=== PATIENT | male | born 1950 | race Caucasian/White ===

== ENCOUNTER → 2020-03-26 09:28 | Outpatient (BNVA) | payer BC, SELFPAY | PROVIDERS: Family Provider Family Medicine; PCP Family Medicine; Visit Provider Family Medicine | DX: N40.1 Benign prostatic hyperplasia with lower urinary tract symptoms (principal); R39.12 Poor urinary stream; I10 Essential (primary) hypertension; D69.3 Immune thrombocytopenic purpura; R35.1 Nocturia; Z13.220 Encounter for screening for lipoid disorders; Z13.6 Encounter for screening for cardiovascular disorders | CPT/HCPCS: 80048; 80061; 84153; 84154; 85007; 85027 ==

== ENCOUNTER → 2021-04-01 09:16 | Outpatient (BNVA) | payer BC, SELFPAY | PROVIDERS: Family Provider Family Medicine; PCP Family Medicine; Visit Provider Family Medicine | DX: N40.1 Benign prostatic hyperplasia with lower urinary tract symptoms (principal); R39.12 Poor urinary stream; Z12.5 Encounter for screening for malignant neoplasm of prostate; Z13.220 Encounter for screening for lipoid disorders; Z13.6 Encounter for screening for cardiovascular disorders; I10 Essential (primary) hypertension; Z13.1 Encounter for screening for diabetes mellitus | CPT/HCPCS: 80053; 80061; 84153; 85025 ==

== ENCOUNTER → 2021-09-30 08:37 | Outpatient (BNVA) | payer BC, SELFPAY | PROVIDERS: Family Provider Family Medicine; PCP Family Medicine; Visit Provider Family Medicine | DX: D69.3 Immune thrombocytopenic purpura (principal); L57.0 Actinic keratosis; I10 Essential (primary) hypertension; Z91.14 Patient's other noncompliance with medication regimen; N40.1 Benign prostatic hyperplasia with lower urinary tract symptoms; R39.12 Poor urinary stream; Z68.31 Body mass index [BMI] 31.0-31.9, adult | CPT/HCPCS: 85007; 85027 ==

== ENCOUNTER → 2022-04-14 09:01 | Outpatient (BNVA) | payer BC, SELFPAY | PROVIDERS: Family Provider Family Medicine; PCP Family Medicine; Visit Provider Family Medicine | DX: N40.1 Benign prostatic hyperplasia with lower urinary tract symptoms (principal); R39.12 Poor urinary stream; I10 Essential (primary) hypertension; Z13.220 Encounter for screening for lipoid disorders; Z13.6 Encounter for screening for cardiovascular disorders; Z13.1 Encounter for screening for diabetes mellitus; R73.9 Hyperglycemia, unspecified; Z12.5 Encounter for screening for malignant neoplasm of prostate; D69.3 Immune thrombocytopenic purpura; R55 Syncope and collapse; R00.1 Bradycardia, unspecified; R35.1 Nocturia; R14.0 Abdominal distension (gaseous) | CPT/HCPCS: 80053; 80061; 83036; 83735; 84153; 84443; 85007; 85027 ==

== ENCOUNTER → 2023-03-23 09:20 | Outpatient (BNVA) | payer BC, SELFPAY | PROVIDERS: Family Provider Family Medicine; PCP Family Medicine; Visit Provider Family Medicine | DX: N40.1 Benign prostatic hyperplasia with lower urinary tract symptoms (principal); R39.12 Poor urinary stream; I10 Essential (primary) hypertension; J44.9 Chronic obstructive pulmonary disease, unspecified; D69.3 Immune thrombocytopenic purpura; M25.522 Pain in left elbow; Z12.5 Encounter for screening for malignant neoplasm of prostate | CPT/HCPCS: 73080; 80053; 80061; 84153; 85025 ==

== ENCOUNTER → 2024-07-18 09:18 | Outpatient (BNVA) | payer BC, SELFPAY | PROVIDERS: Family Provider Family Medicine; PCP Family Medicine; Visit Provider Family Medicine | DX: Z12.5 Encounter for screening for malignant neoplasm of prostate (principal); I10 Essential (primary) hypertension; N40.1 Benign prostatic hyperplasia with lower urinary tract symptoms; R39.12 Poor urinary stream; D69.3 Immune thrombocytopenic purpura | CPT/HCPCS: 80053; 80061; 85025; G0103 ==

== ENCOUNTER → 2025-01-16 09:48 | Outpatient (BNVA) | payer BC, SELFPAY | PROVIDERS: Family Provider Family Medicine; PCP Family Medicine; Visit Provider Family Medicine | DX: I10 Essential (primary) hypertension (principal); D69.3 Immune thrombocytopenic purpura; R73.03 Prediabetes | CPT/HCPCS: 80048; 83036; 85025 ==